=== PATIENT | female | born 1990 | race Caucasian/White ===

== ENCOUNTER 2020-01-06 23:30 | Emergency (ER) | payer SELFPAY ==
[~2020-01-06] VITALS: Ht 73.7 cm; Wt 63.5 kg
[2020-01-06 23:45] VITALS: BP 139/64
[2020-01-06] MEDS ORDERED: Tetanus/Diptheria/Pertussis IM ONE (23:45)
--- NOTE | 2020-01-06 23:45 | NUR ---
ED Nurse Note: Patient walked in to ED from home c/o left hand laceration from a broken glass window. Noted with active bleeding. Stated that her hand is numb. ERMD at bedside.
--- NOTE | 2020-01-06 23:54 | NUR ---
ED Nurse Note: Xray at bedside.
--- NOTE | 2020-01-06 23:56 | Emergency Room Report ---
History of Present Illness General Chief Complaint: Laceration Source: Patient Present Illness [facility] This a 29-year-old female who is right-hand dominant patient presents with chief plan laceration to her left hand. She was closing a window and it was stuck. She puts weight on it and her hand went through and she sustained a laceration. She has a laceration to her base of her left thumb and wrist area. Lots of bleeding but stopped now. Most the pain is to the bottom of the thumb. No fever chills. No foreign body. Tetanus not up-to-date. Pain is 7 out of 10. Worse with movement. Also with numbness to the tip of the thumb. Allergies: Coded Allergies: No Known Allergies (Unverified , 01/06/20) COVID-19 Screening Contact w/high risk pt: No Recent Travel to affected area: No Experienced COVID-19 symptoms?: No Patient History Past Medical History: see triage record, old chart reviewed Past Surgical History: none Pertinent Family History: none Social History: Denies: smoking Last Menstrual Period: 01-06-2020 Now: No Immunizations: other Reviewed Nursing Documentation: PMH: Agreed; PSxH: Agreed Nursing Documentation-PMH Past Medical History: No Stated History Review of Systems Eye: Denies: eye pain, blurred vision ENT: Denies: ear pain, nose congestion, throat swelling Respiratory: Denies: cough, shortness of breath Cardiovascular: Denies: chest pain, palpitations Gastrointestinal: Denies: abdominal pain, diarrhea, nausea, vomiting Musculoskeletal: Denies: back pain, joint pain Skin: Denies: rash Neurological: Denies: headache, numbness Endocrine: Denies: increased thirst, increased urine Hematologic/Lymphatic: Denies: easy bruising All Other Systems: negative except mentioned in HPI Physical Exam Vital Signs Date Time Temp Pulse Resp B/P (MAP) Pulse Ox O2 Delivery O2 Flow Rate FiO2 01/06/20 23:35 98.1 90 18 139/64 (89) 98 Room Air Vitals normal Sp02 EP Interpretation: reviewed, normal General Appearance: well appearing, no apparent distress, alert Head: normocephalic, atraumatic Eyes: bilateral eye PERRL, bilateral eye EOMI ENT: hearing grossly normal, normal pharynx Neck: full range of motion, supple, no meningismus Respiratory: chest non-tender, lungs clear, normal breath sounds Cardiovascular #1: regular rate, rhythm, no murmur Gastrointestinal: normal bowel sounds, non tender, no mass, no organomegaly, no bruit, non-distended Musculoskeletal: back normal, normal range of motion, gait/station normal, other - Left wrist: On the lateral ulnar aspect there is a vertical 3 cm laceration. There is adipose tissue but no obvious foreign body or ligament or tendon laceration. Full range of motion to the wrist. Over the hyperthenar eminence of the left thumb, there is a 1 cm flap laceration. No foreign body. Full range of motion of the thumb and other joints. Psychiatric: mood/affect normal Procedures Laceration/Wound Repair Laceration/Wound Repair #1: Consent: Verbal Wound Location: upper extremity Wound's Depth, Shape: linear Wound Length (cm): 4 Wound Explored: clean Irrigated w/ Saline (ccs): 500 Anesthesia: 1% Lidocaine Volume Anesthetic (ccs): 4 Wound Repaired With: sutures Suture Size/Type: 4:0, proline Number of Sutures: 5 Patient Tolerated: Well Complications: None Laceration/Wound Repair #2: Consent: Verbal Wound Location: upper extremity Wound's Depth, Shape: irregular, flap, stellate Wound Length (cm): 2 Wound Explored: clean Irrigated w/ Saline (ccs): 500 Anesthesia: 1% Lidocaine Volume Anesthetic (ccs): 500 Wound Repaired With: sutures Suture Size/Type: 6:0, proline Number of Sutures: 6 Patient Tolerated: Well Complications: None Medical Decision Making Diagnostic Impression: Primary Impression: Laceration ER Course This patient presents with wrist and hand laceration. No foreign body. No tendon laceration. Will discharge home. Other X-Ray Diagnostic Results Other X-Ray Diagnostic Results : X-Ray ordered: Left hand x-rays # of Views/Limited Vs Complete: 3 View Indication: Pain Interpretation: no dislocation, no soft tissue swelling, no fractures Impression: No acute disease Electronically Signed by: David Marie MD Last Vital Signs Date Time Temp Pulse Resp B/P (MAP) Pulse Ox O2 Delivery O2 Flow Rate FiO2 01/06/20 23:35 98.1 90 18 139/64 (89) 98 Room Air Status: improved Disposition: HOME, SELF-CARE Condition: Stable Scripts No Active Prescriptions or Reported Meds Referrals: NOT CHOSEN IPA/,REFERRING (PCP) Patient Instructions: Laceration Care, Adult Additional Instructions: Keep wound clean. Follow-up with your doctor in 7 days for suture removal. Return if worse. David Marie MD January 06, 2020 23:56
--- NOTE | 2020-01-07 00:09 | NUR ---
ED Nurse Note: ERMD at bedside for lac repair.
[2020-01-07 00:34] VITALS: BP 139/64
--- NOTE | 2020-01-07 00:34 | NUR ---
ED Nurse Note: Pt cleared by ERMD for discharge. DC instructions was given and explained to pt and verbalized understanding of teachings. All medical deviecs such as ID band removed. Pt is AAO x4, ambulatory and left with all personal belongings.
--- NOTE | 2020-01-07 01:42 | Diagnostic Imaging Report ---
EXAM: XR Left Hand Complete, 3 or More Views CLINICAL HISTORY: TRAUMA TECHNIQUE: Frontal, lateral and oblique views of the left hand. COMPARISON: No relevant prior studies available. FINDINGS: Bones/joints: No acute osseous abnormality. Soft tissue irregularity over the ulnar aspect of the distal forearm and the thenar eminence. No dislocation. Soft tissues: Unremarkable. No radiopaque foreign body. Other findings: Otherwise unremarkable study. IMPRESSION: 1. No acute osseous abnormality. 2. Soft tissue irregularity over the ulnar aspect of the distal forearm and the thenar eminence.
== END 2020-01-07 00:34 | disposition home or self-care (01) ==
LOC: EMR 23:47
DX: S61.512A Laceration without foreign body of left wrist, initial encounter (principal); S61.012A Laceration without foreign body of left thumb without damage to nail, initial encounter; Z23 Encounter for immunization; W25.XXXA Contact with sharp glass, initial encounter; Y92.9 Unspecified place or not applicable
CPT/HCPCS: 90471; 90715; 99283

== ENCOUNTER 2020-01-17 13:36 | Emergency (ER) | payer SELFPAY ==
[~2020-01-17] VITALS: Ht 165.1 cm; Wt 65.3 kg
[~2020-01-17 13:36] MED LIST: MUPIROCIN22 GM TOPIC
[2020-01-17 13:46] VITALS: BP 115/63
--- NOTE | 2020-01-17 14:17 | NUR ---
ED Nurse Note: Patient walked in to ED for suture removal. Pt was seen here last 01/06/20 for left hand laceration.
--- NOTE | 2020-01-17 14:48 | Emergency Room Report ---
History of Present Illness General Chief Complaint: Wound Recheck/Suture Removal Source: Patient Present Illness HPI 29-year-old female presents to the emergency department complaining of 2 out of 10 severity hypersensitivity to laceration of the left forearm and left hand that was previously sutured 12 days ago. Patient denies erythema or warmth. Patient denies discharge. She reports several small scabs with dried blood. Patient states she has been keeping it covered and has not been washing her arm. Patient denies using any medications or creams. No other aggravating or relieving factors at this time. Patient reports some mild itching at the laceration site. Allergies: Coded Allergies: No Known Allergies (Unverified , 01/06/20) COVID-19 Screening Contact w/high risk pt: No Recent Travel to affected area: No Experienced COVID-19 symptoms?: No Patient History Past Medical History: see triage record Past Surgical History: none Pertinent Family History: none Now: No Immunizations: UTD Reviewed Nursing Documentation: PMH: Agreed; PSxH: Agreed Nursing Documentation-PMH Past Medical History: No Stated History Review of Systems All Other Systems: negative except mentioned in HPI Physical Exam Vital Signs Date Time Temp Pulse Resp B/P (MAP) Pulse Ox O2 Delivery O2 Flow Rate FiO2 01/17/20 13:46 98.2 64 17 115/63 (80) 98 Room Air Sp02 EP Interpretation: reviewed, normal General Appearance: no apparent distress, alert, GCS 15, non-toxic Head: normocephalic, atraumatic Eyes: bilateral eye normal inspection, bilateral eye PERRL ENT: hearing grossly normal, normal voice Neck: full range of motion Respiratory: lungs clear, normal breath sounds, speaking full sentences Cardiovascular #1: regular rate, rhythm, no edema, normal capillary refill Musculoskeletal: back normal, normal range of motion, gait/station normal, non- tender Neurologic: alert, motor strength/tone normal, oriented x3, sensory intact, responsive, speech normal Psychiatric: judgement/insight normal Skin: wd healing/no infection noted - sutured lacerations of the left wrist/ forearm and left palm. no infection noted Lymphatic: no adenopathy Medical Decision Making PA Attestation Dr. Wasserman is my supervising Physician whom patient management has been discussed with. Diagnostic Impression: Primary Impression: Encounter for removal of sutures ER Course 29-year-old female presents to the emergency department complaining of 2 out of 10 severity hypersensitivity to laceration of the left forearm and left hand that was previously sutured 12 days ago. Patient denies erythema or warmth. Patient denies discharge. She reports several small scabs with dried blood. Patient states she has been keeping it covered and has not been washing her arm. Patient denies using any medications or creams. No other aggravating or relieving factors at this time. Patient reports some mild itching at the laceration site. Ddx considered but are not limited to laceration, tendon injury, cellulitis, dehiscence. Vital signs: are WNL, pt. is afebrile H&PE are most consistent with: healed laceration of the Left forearm and hand. ORDERS: none required at this time, the diagnosis is clinical ED INTERVENTIONS: - Sutures removed. - no Complications. DISCHARGE: At this time pt. is stable for d/c to home. Will provide printed patient care instructions, and any necessary prescriptions. Care plan and follow up instructions have been discussed with the patient prior to discharge. Last Vital Signs Date Time Temp Pulse Resp B/P (MAP) Pulse Ox O2 Delivery O2 Flow Rate FiO2 01/17/20 13:46 98.2 17 115/63 98 Room Air 01/17/20 13:46 64 Disposition: HOME, SELF-CARE Condition: Stable Scripts Emollient Combination No.46 (MEDERMA) 20 Gm Cream..g. 1 APPLIC TP Q6HR, #20 GM Prov: Mayda Valladares 01/17/20 Bacitracin (Bacitracin) 28.4 Gm Oint...g. 1 APPLIC TOPIC THREE TIMES A DAY, #28.4 GM Prov: Mayda Valladares 01/17/20 Referrals: NOT CHOSEN IPA/,REFERRING (PCP) Patient Instructions: Suture Removal, Care After Additional Instructions: Take medications as directed. Apply OINTMENT x 2 days, Then may begin applying Scar Cream Remember to use sunscreen diligently this summer to help reduce the appearance of the laceration scars. Follow up with a Primary Care Provider in 3-5 days, even if your symptoms have resolved. Return sooner to ED if new symptoms occur, or current symptoms become worse. - Please note that this Emergency Department Report was dictated using [employer] deliverer technology software, occasionally this can lead to erroneous entry secondary to interpretation by the dictation equipment. Mayda Valladares January 17, 2020 14:48
[2020-01-17] MEDS ORDERED: MEDERMA20 GM TP (14:49)
[2020-01-17] MEDS ORDERED: BACITRACIN15 GM TOPIC (14:49)
[2020-01-17 15:00] VITALS: BP 115/63
--- NOTE | 2020-01-17 15:00 | NUR ---
ED Nurse Note: Pt cleared by ERMD for discharge. DC instructions/prescription was given and explained to pt and verbalized understanding of teachings. All medical deviecs such as ID band removed. Pt is AAO x4, ambulatory and left with all personal belongings.
== END 2020-01-17 15:00 | disposition home or self-care (01) ==
LOC: EMR 14:34
DX: Z48.02 Encounter for removal of sutures (principal)
CPT/HCPCS: 99281

== ENCOUNTER 2020-01-26 11:19 | Emergency (ER) | payer SELFPAY ==
[~2020-01-26] VITALS: Ht 165.1 cm; Wt 63.5 kg
[~2020-01-26 11:19] MED LIST changes: +BACITRACIN15 GM TOPIC; +MEDERMA20 GM TP
[2020-01-26 11:34] VITALS: BP 95/63
--- NOTE | 2020-01-26 11:40 | Emergency Room Report ---
History of Present Illness General Chief Complaint: Wound Recheck/Suture Removal Source: Patient Present Illness HPI Patient is a 29-year-old female who presents to the ER for wound check. Patient states that she sustained several lacerations to her left upper extremity earlier this month after some glass cut it. She states that on her palm the skin is raised so she wanted to make sure that it was healing okay. She denies any fever or chills. She denies any discharge from her wounds. She is right-hand dominant. She states that she did get a tetanus shot when she was here. Allergies: Coded Allergies: No Known Allergies (Unverified , 01/06/20) COVID-19 Screening Contact w/high risk pt: No Recent Travel to affected area: No Experienced COVID-19 symptoms?: No COVID-19 Testing performed PRINCIPAL IOS DEVELOPER: No Patient History Last Menstrual Period: na Now: No Reviewed Nursing Documentation: PMH: Agreed; PSxH: Agreed Nursing Documentation-PMH Past Medical History: No Stated History Review of Systems All Other Systems: negative except mentioned in HPI Physical Exam Vital Signs Date Time Temp Pulse Resp B/P (MAP) Pulse Ox O2 Delivery O2 Flow Rate FiO2 01/26/20 11:23 98.4 65 18 95/63 (74) 98 Room Air Sp02 EP Interpretation: reviewed, normal General Appearance: no apparent distress, alert, GCS 15, non-toxic Head: normocephalic, atraumatic Eyes: bilateral eye normal inspection, bilateral eye PERRL ENT: hearing grossly normal, normal pharynx, no angioedema, normal voice Neck: full range of motion, supple/symm/no masses Respiratory: chest non-tender, speaking full sentences Cardiovascular #1: regular rate, rhythm, no edema Gastrointestinal: non tender, soft, non-distended Rectal: deferred Musculoskeletal: normal range of motion, other - Right thenar eminence semicircular healed wound with scabbed dermis that is raised from the healed wound Neurologic: alert, motor strength/tone normal, oriented x3, sensory intact, responsive, speech normal Skin: no rash Lymphatic: no adenopathy Medical Decision Making Diagnostic Impression: Primary Impression: Encounter for wound re-check ER Course Patient had old wound. She was concerned about infection. I placed a needle in the wound and attempted to aspirate if there was any pus but there was no pus. There are no signs of infection specifically no redness or crepitus. No discharge from the wound. I told her that that piece of scab will fall off on its own. After discussing risks and benefits of further diagnostics, treatment plans, as well as indications for and risks of admission, the patient is agreeable to being discharged home. I have explained that their evaluation and treatment in the emergency department today is an important step towards them achieving better health but that their evaluation today is not intended to replace further evaluation and treatment by a physician in their local clinic. I have explained that while the current findings suggest no immediate life threatening emergency they will require further evaluation and treatment by a physician of their choice in their area. They understand that it will be necessary for them to review the final reports of their ED visit with their clinic physician. We have reviewed indications for return to the Emergency Department. I have explained that additional time may need to pass and/or additional testing as an outpatient may be necessary before a definitive diagnosis can be made. They tell me they are willing to follow up as instructed within the timeframe I recommend. They appear to understand what we discussed. Additionally they understand that if they are unable to be seen by an outpatient physician they are welcome, and in fact should, return to the Emergency Department for a repeat evaluation. The patient is stable at time of discharge. Last Vital Signs Date Time Temp Pulse Resp B/P (MAP) Pulse Ox O2 Delivery O2 Flow Rate FiO2 01/26/20 11:34 98.4 76 18 95/63 98 Room Air Disposition: HOME, SELF-CARE Condition: Stable Referrals: [facility] Patient Instructions: Wound Check Additional Instructions: The patient was provided with discharge instructions, notified to follow-up with a primary care doctor and or specialist in the next 24-48 hours, and to return to the ED if they have worsening of their symptoms. Please note that this report is being documented using [employer] technology. This can lead to erroneous entry secondary to incorrect interpretation by the dictating instrument. Alexus Norton M.D. January 26, 2020 11:40
[2020-01-26 11:52] VITALS: BP 95/63
== END 2020-01-26 11:52 | disposition home or self-care (01) ==
LOC: EMR 11:38
DX: Z09 Encounter for follow-up examination after completed treatment for conditions other than malignant neoplasm (principal); S61.412D Laceration without foreign body of left hand, subsequent encounter; W45.8XXD Other foreign body or object entering through skin, subsequent encounter
CPT/HCPCS: 99281